=== PATIENT | female | born 1970 | race Caucasian/White ===

== ENCOUNTER 2017-10-17 10:42 | Emergency (ER) | payer MEDICAID ==
[~2017-10-17] VITALS: Ht 165.1 cm; Wt 76.8 kg
[2017-10-17 10:53] VITALS: BP 111/71
[2017-10-17] MEDS ORDERED: DEXAMETHASONE 4 MG TABLET ONE (11:15)
[2017-10-17] MEDS ORDERED: DEXAMETHASONE 4 MG TABLET PO ONE (11:30)
== END 2017-10-17 11:29 | disposition home or self-care (01) ==
LOC: ED 11:23
DX: J02.0 Streptococcal pharyngitis (principal); K02.9 Dental caries, unspecified; F17.200 Nicotine dependence, unspecified, uncomplicated; J45.909 Unspecified asthma, uncomplicated; Z76.0 Encounter for issue of repeat prescription
CPT/HCPCS: 99283